=== PATIENT | male | born 1995 | race Asian ===

== ENCOUNTER 2017-04-25 12:36 | Emergency (ER) | payer BC ==
[2017-04-25 12:58] VITALS: RESP 17; TEMP 98.8
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
[2017-04-25 15:56] VITALS: BP 118/72; PULSE 70; O2SAT 96
== END 2017-04-25 15:56 | disposition home or self-care (01) ==
PROC: 0HQ0XZZ Repair Scalp Skin, External Approach (ICD-10-PCS; principal; 2017-04-25)
DX: S01.01XA Laceration without foreign body of scalp, initial encounter (principal); W20.8XXA Other cause of strike by thrown, projected or falling object, initial encounter